=== PATIENT | female | born 1995 | race African-American/Black ===

== ENCOUNTER 2018-08-01 11:23 | Emergency (ER) | payer OTHER ==
[~2018-08-01] VITALS: Ht 162.6 cm; Wt 54.4 kg
[2018-08-01 11:43] VITALS: BP 107/57
--- NOTE | 2018-08-01 12:15 | PHYS DOC ---
Past Medical History Past Medical History: Anemia, Asthma Past Surgical History: Tonsillectomy Alcohol Use: None Drug Use: None Adult General Chief Complaint Chief Complaint: WOUND CHECK [facility] HPI Patient is a 23 year old female who presents with pinning of a blister in bottom of right foot for 3 weeks that comes and goes. 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 Patient denies fever and chills, focal neuro deficit, history of the same problem, having new shoes. Review of Systems Review of Systems Constitutional: Denies fever or chills [] Eyes: Denies change in visual acuity, redness, or eye pain [] HENT: Denies nasal congestion or sore throat [] Respiratory: Denies cough or shortness of breath [] Cardiovascular: No additional information not addressed in HPI [] GI: Denies abdominal pain, nausea, vomiting, bloody stools or diarrhea [] : Denies dysuria or hematuria [] Musculoskeletal: Denies back pain or joint pain [] Integument: Denies rash, reports skin lesions [] Neurologic: Denies headache, focal weakness or sensory changes [] Endocrine: Denies polyuria or polydipsia [] All other systems were reviewed and found to be within normal limits, except as documented in this note. Physical Exam Physical Exam Constitutional: Well developed, well nourished, no acute distress, non-toxic appearance. [] HENT: Normocephalic, atraumatic Eyes: PERRLA, EOMI, conjunctiva normal, no discharge. [] Neck: Normal range of motion, no tenderness, supple, no stridor. [] Cardiovascular:Heart rate regular rhythm, no murmur [] Lungs & Thorax: Bilateral breath sounds clear to auscultation [] Skin: Warm, dry, no erythema, no rash. [] Back: No tenderness, no CVA tenderness. [] Extremities: Right foot with small none infected blister in the volar side of with mild tenderness, small corn close to the blister without sign of infection or tenderness no cyanosis, no clubbing, ROM intact, no edema. [] Neurologic: Alert and oriented X 3, normal motor function, normal sensory function, no focal deficits noted. [] Psychologic: Affect normal, judgement normal, mood normal. [] Current Patient Data Vital Signs Vital Signs Date Time Temp Pulse Resp B/P (MAP) Pulse Ox O2 Delivery O2 Flow Rate FiO2 08/01/18 11:43 98.2 80 16 107/57 (74) 98 Room Air 98.2 EKG EKG [] Radiology/Procedures Radiology/Procedures [] Course & Med Decision Making Course & Med Decision Making Evaluation of patient in ER showed 23-year-old female patient presented to ER with a blister on bottom of right foot that comes and goes for 3 weeks after starting a new a standing job. Patient had a small blister without sign of infection and requesting pop in the blister. Blister was opened with pocking needle with clear liquid came out. Patient change her shoes and using padding in her shoes. Dragon Disclaimer Dragon Disclaimer This electronic medical record was generated, in whole or in part, using a voice recognition dictation system. Departure Departure Impression: Primary Impression: Blister of foot, right Additional Impression: Slinger of foot Disposition: HOME, SELF-CARE (1222) Condition: IMPROVED Referrals: UNKNOWN PCP NAME (PCP) Patient Instructions: Blisters, Corns and Calluses-SportsMed Additional Instructions: Use padding inside of your shows Follow-up with your primary care physician in 3-5 days Return to ER if not getting better Scripts Mupirocin Calcium (BACTROBAN CREAM) 15 Gm Cream..g. 1 EDELMIRA TP TID, #30 GM Prov: DAVID PALOMINO MD 08/01/18 Problem Qualifiers DAVID PALOMINO MD Aug 01, 2018 12:15
[2018-08-01] MEDS ORDERED: MUPI15CR TP (12:25)
== END 2018-08-01 12:47 | disposition home or self-care (01) ==
LOC: ER 11:23
DX: S90.821A Blister (nonthermal), right foot, initial encounter (principal); L84 Corns and callosities; J45.909 Unspecified asthma, uncomplicated
CPT/HCPCS: 99283

== ENCOUNTER 2018-08-23 08:52 | Emergency (ER) | payer OTHER ==
[~2018-08-23] VITALS: Ht 162.6 cm; Wt 57.6 kg
[~2018-08-23 08:52] MED LIST: MUPI15CR TP
[2018-08-23 09:45] VITALS: BP 108/70
--- NOTE | 2018-08-23 10:31 | RAD ---
Chest, 2 views, 08/23/2018: History: Cough The heart size and pulmonary vascularity are normal. No pulmonary infiltrate is seen. There is no evidence of pleural fluid. IMPRESSION: No acute cardiopulmonary abnormality is detected.
[2018-08-23 10:37] LABS: INFLUENZA A PATIENT NEGATIVE (NEGATIVE); INFLUENZA B PATIENT NEGATIVE (NEGATIVE)
[2018-08-23 10:58] LABS: BILIRUBIN,URINE NEGATIVE (NEG); CLARITY,URINE CLEAR; COLOR,URINE YELLOW; NITRITE,URINE NEGATIVE (NEG); PH,URINE 5.5; PROTEIN,URINE NEGATIVE (NEG-TRACE)
--- NOTE | 2018-08-23 11:04 | PHYS DOC ---
Past Medical History Past Medical History: Anemia, Asthma Past Surgical History: Tonsillectomy, Other Additional Past Surgical Histo: adenoidectomy Alcohol Use: None Drug Use: None Adult General Chief Complaint Chief Complaint: FLU SYMPTOM HPI HPI Patient is a 23 year old female with history of asthma who presents today complaining of body aches, cough, nasal congestion, sore throat, mild generalized headaches intermittently for 1-1/2 weeks. Patient states she's been using [id number] remedies with no relief. Denies this being the worst headache in her life. Review of Systems Review of Systems Constitutional: Denies fever or chills [] Eyes: Denies change in visual acuity, redness, or eye pain [] HENT: Reports nasal congestion and sore throat [] Respiratory: Denies cough or shortness of breath [] Cardiovascular: No additional information not addressed in HPI [] GI: Denies abdominal pain, nausea, vomiting, bloody stools or diarrhea [] : Denies dysuria or hematuria [] Musculoskeletal: Denies back pain or joint pain [] Integument: Denies rash or skin lesions [] Neurologic: Reports headache, denies focal weakness or sensory changes [] All other systems were reviewed and found to be within normal limits, except as documented in this note. Allergies Allergies Allergies Coded Allergies Type Severity Reaction Last Updated Verified No Known Drug Allergies 08/23/18 No Physical Exam Physical Exam Constitutional: Well developed, well nourished, no acute distress, non-toxic appearance. [] HENT: Normocephalic, atraumatic, bilateral external ears normal, oropharynx moist, no oral exudates, nose normal. [] Eyes: PERRLA, EOMI, conjunctiva normal, no discharge. [] Neck: Normal range of motion, no tenderness, supple, no stridor. [] Cardiovascular:Heart rate regular rhythm, no murmur [] Lungs & Thorax: Bilateral breath sounds clear to auscultation [] Abdomen: Bowel sounds normal, soft, no tenderness, no masses, no pulsatile masses. [] Skin: Warm, dry, no erythema, no rash. [] Back: No tenderness, no CVA tenderness. [] Extremities: No tenderness, no cyanosis, no clubbing, ROM intact, no edema. [] Neurologic: Alert and oriented X 3, normal motor function, normal sensory function, no focal deficits noted. Cranial nerves II through XII intact Psychologic: Affect normal, judgement normal, mood normal. [] Current Patient Data Vital Signs Vital Signs Date Time Temp Pulse Resp B/P (MAP) Pulse Ox O2 Delivery O2 Flow Rate FiO2 08/23/18 09:45 98.4 83 20 108/70 (83) 100 Room Air 98.4 Lab Values Laboratory Tests Test 08/23/18 09:48 08/23/18 10:20 08/23/18 10:30 Influenza Type A Antigen Negative (NEGATIVE) Influenza Type B Antigen Negative (NEGATIVE) Urine Collection Type Unknown Urine Color Yellow Urine Clarity Clear Urine pH 5.5 Urine Specific [place] 1.020 Urine Protein Negative mg/dL (NEG-TRACE) Urine Glucose (UA) Negative mg/dL (NEG) Urine Ketones (Stick) Negative mg/dL (NEG) Urine Blood Small (NEG) Urine Nitrite Negative (NEG) Urine Bilirubin Negative (NEG) Urine Urobilinogen Dipstick 1.0 mg/dL (0.2 mg/dL) Urine Leukocyte Esterase Negative (NEG) Urine RBC 0 /HPF (0-2) Urine WBC 0 /HPF (0-4) Urine Squamous Epithelial Cells Few /LPF Urine Bacteria Few /HPF (0-FEW) Urine Mucus Slight /LPF Group A Streptococcus Rapid Negative (NEGATIVE) EKG EKG [] Radiology/Procedures Radiology/Procedures []PROCEDURE: CHEST PA & LATERAL Chest, 2 views, 08/23/2018: History: Cough The heart size and pulmonary vascularity are normal. No pulmonary infiltrate is seen. There is no evidence of pleural fluid. IMPRESSION: No acute cardiopulmonary abnormality is detected. DICTATED and SIGNED BY: MAGGIE ACE MD DATE: 08/23/18 1126 Course & Med Decision Making Course & Med Decision Making Pertinent Labs and Imaging studies reviewed. (See chart for details) []This is a well-appearing 23-year-old female patient presenting to the ED today with upper respiratory infection symptoms including cough, headache, nasal condition, and sore throat for 1-1/2 weeks. Chest x-ray interpreted by radiologist as negative for any acute findings. Negative influenza A or B, negative strep test. Urine analysis is negative. Patient has perfectly normal vitals. She is in no distress. Symptoms are likely viral. Discharged with Flonase nasal spray, and pseudoephedrine. Follow-up with PCP in 1-2 weeks as needed. Tylenol or Motrin for pain or fever. Dragon Disclaimer Dragon Disclaimer This electronic medical record was generated, in whole or in part, using a voice recognition dictation system. Departure Departure Impression: Primary Impression: Upper respiratory infection Additional Impressions: Cough Acute viral pharyngitis Disposition: HOME, SELF-CARE Condition: STABLE Referrals: NO PCP (PCP) follow up in 1-2 weeks Patient Instructions: Cough, Adult, [id number], Headache, FAQs, Upper Respiratory Infection, Adult, [id number], Viral Pharyngitis Additional Instructions: You were evaluated in the emergency room, Your chest x-ray was negative for any acute findings, your influenza test as well as strep test were negative. Your urine analysis was negative for infection. Your symptoms are likely viral. Rest , push fluids. Use the medications prescribed as ordered. Follow-up with your own doctor in 1-2 weeks. Scripts Pseudoephedrine Hcl (PSEUDOEPHEDRINE) 120 Mg Tablet.er 1 TAB PO BID, #20 TAB Prov: HUA SALMON APRN 08/23/18 Fluticasone Propionate (Flonase Allergy Relief) 9.9 Ml Jenkins.susp 2 SPRAYS NS DAILY, #1 BOTTLE Prov: HUA SALMON APRN 08/23/18 Problem Qualifiers Primary Impression: Upper respiratory infection URI type: unspecified URI Qualified Codes: J06.9 - Acute upper respiratory infection, unspecified HUA SALMON APRN Aug 23, 2018 11:04
[2018-08-23 11:12] LABS: SQUAMOUS EPITHELIAL CELL,UR FEW /LPF
[2018-08-23 11:14] LABS: BACTERIA,URINE FEW /HPF (0-FEW); RBC,URINE 0 /HPF (0-2); WBC,URINE 0 /HPF (0-4)
[2018-08-23] MEDS ORDERED: PSEU120T58 PO (11:24)
[2018-08-23] MEDS ORDERED: FLUT9.9S NS (11:24)
== END 2018-08-23 11:33 | disposition home or self-care (01) ==
LOC: ER 08:52
DX: J02.8 Acute pharyngitis due to other specified organisms (principal); B97.89 Other viral agents as the cause of diseases classified elsewhere; J45.909 Unspecified asthma, uncomplicated; Z86.2 Personal history of diseases of the blood and blood-forming organs and certain disorders involving the immune mechanism; Z90.89 Acquired absence of other organs
CPT/HCPCS: 71046; 81001; 87070; 87804; 87880; 99284